=== PATIENT | male | born 1995 | race Caucasian/White ===

== ENCOUNTER 2017-12-05 21:35 | Emergency (ER) | payer OTHER ==
[~2017-12-05] VITALS: Ht 172.7 cm; Wt 63.5 kg
[2017-12-05 21:38] VITALS: Ht 172.7 cm; Wt 63.5 kg
[2017-12-05 23:43] VITALS: BP 136/47
== END 2017-12-05 23:43 | disposition home or self-care (01) ==
LOC: ED 21:35
DX: M25.561 Pain in right knee (principal); F12.10 Cannabis abuse, uncomplicated; Z88.0 Allergy status to penicillin